=== PATIENT | female | born 1985 | race Caucasian/White ===

== ENCOUNTER 2023-03-13 07:39 | Emergency (ER) | payer BC ==
[~2023-03-13] VITALS: Ht 162.6 cm; Wt 54.2 kg
[2023-03-13 08:08] VITALS: TEMP 98.5
--- NOTE | 2023-03-13 08:15 | NUR ---
Pt resting in gurney. at bedside. No needs at this time.
--- NOTE | 2023-03-13 08:58 | NUR ---
Pt ambulating to brp with .
[2023-03-13 09:06] LABS: BASOPHILS # (AUTO) 0.1 X10'3 (0-0.2); BASOPHILS % (AUTO) 0.5 % (0-1); EOSINOPHILS % (AUTO) 0.2 % (0-6); HEMOGLOBIN 11.8 g/dl (12.0-16.0); LYMPHOCYTES # (AUTO) 1.8 X10'3 (1.1-4.8); LYMPHOCYTES % (AUTO) 14.8 % (21-51); MEAN CORPUSCULAR HEMOGLOBIN 30.5 PG (27.0-31.0); MEAN CORPUSCULAR HGB CONC 33.7 g/dL (33.0-36.5); MEAN CORPUSCULAR VOLUME 90.3 FL (78-98); MEAN PLATELET VOLUME 7.2 FL (7.4-10.4); MONOCYTES # (AUTO) 0.8 X10'3 (0-0.9); MONOCYTES % (AUTO) 6.7 % (2-12); NEUTROPHILS # (AUTO) 9.4 X10'3 (1.8-7.7); NEUTROPHILS % (AUTO) 77.8 % (42-75); PLATELET COUNT 312 X10'3 (140-440); RED BLOOD COUNT 3.88 X10'6 (4.20-5.60); RED CELL DISTRIBUTION WIDTH 12.6 % (11.5-14.5); WHITE BLOOD COUNT 12.1 X10'3 (4.5-11.0)
[2023-03-13 09:20] LABS: ANION GAP 5 (8-16); BILIRUBIN,TOTAL 0.2 MG/DL (0.1-1.0); BLOOD UREA NITROGEN 6 MG/DL (7-18); BUN/CREATININE RATIO 9.1 (10.0-20.0); CALCIUM 8.4 MG/DL (8.5-10.1); CHLORIDE 104 MMOL/L (99-107); CREATININE 0.66 MG/DL (0.40-0.90); GLUCOSE 98 MG/DL (70-104); POTASSIUM 3.4 MMOL/L (3.5-5.1); SODIUM 136 MMOL/L (135-145); TOTAL CARBON DIOXIDE 26.6 MMOL/L (24-32); eCRCL 98 ML/MIN; eGFR > 90 ML/MIN
[2023-03-13 09:21] LABS: ALANINE AMINOTRANSFERASE 23 U/L (12-78); ALBUMIN 2.8 G/DL (3.4-5.0); ALKALINE PHOSPHATASE 44 IU/L (46-116); ASPARTATE AMINO TRANSFERASE 14 U/L (10-37); LIPASE 29 U/L (16-77); TOTAL PROTEIN 5.7 G/DL (6.4-8.2)
[2023-03-13 09:26] LABS: BILIRUBIN,URINE NEGATIVE (Neg); CLARITY,URINE CLEAR (Clear); COLOR,URINE YELLOW (Yellow); GLUCOSE, URINE NEGATIVE (Neg); KETONES,URINE NEGATIVE (Neg); LEUKOCYTE ESTERASE ,URINE NEGATIVE (Neg); NITRITES, URINE NEGATIVE (Neg); OCCULT BLOOD,URINE NEGATIVE (Neg); PROTEIN,URINE NEGATIVE (Neg); UROBILINOGEN,URINE 0.2 E.U/dL (0.2-1.0)
[2023-03-13 09:28] LABS: UA COLLECTION TYPE CLN CATCH MIDSTREAM
[2023-03-13 09:35] LABS: URINE HCG NEGATIVE (NEG)
[2023-03-13] MEDS ORDERED: potassium Cl 20 mEq SR tablet PO STA (10:10)
[2023-03-13] MEDS ORDERED: PANT-47 PO (10:24)
[2023-03-13] MEDS ORDERED: SUCR1TAB PO (10:24)
--- NOTE | 2023-03-13 10:41 | NUR ---
PT C/O RIGHT HAND PAIN. DR. MATHEWS'S AT BEDSIDE TO ANSWER PATIENTS QUESTIONS ABOUT IT.
[2023-03-13 10:44] VITALS: BP 113/70; PULSE 71; RESP 16; O2SAT 100
== END 2023-03-13 10:47 | disposition home or self-care (01) ==
LOC: ER 07:39
DX: R55 Syncope and collapse (principal); E87.6 Hypokalemia; Z79.899 Other long term (current) drug therapy
CPT/HCPCS: 36415; 80053; 81003; 81025; 83690; 85025; 99284